=== PATIENT | female | born 1940 | race Two or more races ===

== ENCOUNTER 2018-11-16 22:34 | Emergency (ER) | payer OTHER, MEDICARE ==
[~2018-11-16] VITALS: Ht 157.5 cm; Wt 63.5 kg
[2018-11-16 22:54] VITALS: Ht 157.5 cm; Wt 63.5 kg
[2018-11-17 00:41] LABS: microscopic required? YES
[2018-11-17 00:42] LABS: urine erythrocyte NEGATIVE (NEGATIVE)
[2018-11-17 00:42] LABS: BASOPHIL % 0.8 % (0-2); PLATELET COUNT 227 x10^3mcL (130-400)
[2018-11-17 00:43] LABS: RED CELL DISTRIBUTION WIDTH 15.2 % (11.5-14.5)
[2018-11-17 00:48] LABS: CALCIUM 9.4 mg/dL (8.5-10.1); CHLORIDE SERUM 103 mmol/L (98-107); GLUCOSE SERUM 91 mg/dL (74-106); SODIUM SERUM 140 mmol/L (136-145)
[2018-11-17 00:53] LABS: ALBUMIN 3.9 g/dL (3.4-5.0); ALKALINE PHOSPHATASE 115 U/L (46-116); ALT/SGPT 23 U/L (14-59); AST/SGOT 24 U/L (15-37); BILIRUBIN TOTAL 0.44 mg/dL (0.20-1.00)
[2018-11-17 01:18] LABS: TOTAL PROTEIN, SERUM 8.3 g/dL (6.4-8.2)
[2018-11-17 02:51] VITALS: BP 189/87
== END 2018-11-17 02:51 | disposition home or self-care (01) ==
LOC: ED 22:34 → EDSEX 22:34 → CANBEDREQ 11-17 02:31 → ED 11-17 02:51
PROVIDERS: Emergency Medicine
DX: N39.0 Urinary tract infection, site not specified (principal); I10 Essential (primary) hypertension; E03.9 Hypothyroidism, unspecified; M81.0 Age-related osteoporosis without current pathological fracture; Z88.0 Allergy status to penicillin; Z88.2 Allergy status to sulfonamides
CPT/HCPCS: 36415; J1885